=== PATIENT | female | born 1985 | race African-American/Black ===

== ENCOUNTER 2017-04-13 03:23 | Emergency (ER) | payer BC, OTHER ==
[~2017-04-13] VITALS: Ht 167.6 cm; Wt 86.2 kg
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
[2017-04-13 06:00] VITALS: BP 138/90
[2017-04-13] MEDS ORDERED: CYCL10TA2 PO (06:18)
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
== END 2017-04-13 06:37 | disposition home or self-care (01) ==
LOC: ER 03:23
DX: M62.830 Muscle spasm of back (principal); V49.49XA Driver injured in collision with other motor vehicles in traffic accident, initial encounter; Y93.I9 Activity, other involving external motion; Y92.410 Unspecified street and highway as the place of occurrence of the external cause; Y99.8 Other external cause status
CPT/HCPCS: 71101; 81025; 99284